=== PATIENT | female | born 1985 | race Caucasian/White ===

== ENCOUNTER 2019-01-11 15:25 | Inpatient (IN) | payer OTHER, SELFPAY ==
[2019-01-11 15:05] VITALS: BMI 33.3
[2019-01-11] MEDS: Lactated Ringers 1,000 ML 50 ML IV ×3 (15:40→22:37)
[2019-01-11 16:09] LABS: Absolute Lymphocyte Count 1.37 X10^3/ul (0.83-4.51); Absolute Neutrophil Count 14.4 X10^3/uL (2.0-7.7); Basophil# 0.02 X10^3/uL; Basophil% 0.1 % (0-1); Eosinophil# 0.05 X10^3/uL; Eosinophils% 0.3 % (0-5); Hematocrit 36.8 % (37-47); Hemoglobin 12.5 g/dl (12.0-15.0); Lymphocyte # 1.37 X10^3/ul (4.0); Mean Corpuscular Hgb 31.7 pg (27.0-32.0); Mean Corpuscular Volume 93.4 fL (81-99); Monocyte# 1.29 X10^3/uL; Monocyte% 7.5 % (0-10); Neutrophil % 83.9 % (47-70); Platelet Count 187 K/mm3 (150-450); RBC Distribution Width CV 12.7 % (11.6-14.6); RBC Distribution Width SD 43.3 fl (35.1-43.9); Red Blood Count 3.94 M/mm3 (4.2-5.4); White Blood Count 17.2 K/mm3 (4.4-11.0)
[2019-01-11 16:16] LABS: POSITIVE COUNT NO; POSITIVE DIFFERENTIAL NO; POSITIVE MORPHOLOGY NO
[2019-01-11] MEDS: Ondansetron 4 MG/2 ML Vial IV (16:30)
--- NOTE | 2019-01-11 16:42 | PCM.HP.OB ---
- Problem List (1) Active labor at term Status: Acute History Date of Admission: 01/11/19 Final LORI: 01/31/19 Final LORI Source: LMP Gestational age: 37 Weeks and 1 Days History of this : This is a 34 year-old, G [2], P [1], at 37+1 weeks gestational age presenting to triage reporting progressively closer and stronger contractions as day went on. Patient reports scant mucous blood discharge. Denies SROM. Reports +FM. Patient initially found to be 2-3cm/60/-2 by nursing staff on exam. Patient ambulated x 1 hour and then requested recheck of cervix. Allergies No Known Allergies Allergy (Verified 09/22/16 12:58) Home Medications: Home Medications Vits [Prenatabs FA ] 1 tablet PO DAILY 03/23/16 Aspir 81 81 mg PO DAILY 01/11/19 Smoking Status: Former smoker Alcohol: None Number of Fetus(es): 1 Heart Tracing: Baseline 140, moderate variability, + accels, no decels TOCO Analysis: Ctx q 3-5 minutes, mild to moderate by palpation History Past Pregnancies: Past Pregnancies Delivery Date Name GA/Weeks Outcome Route Weight Infant Gender Labor Length Anesthesia Delivery Location Provider FOB 03/2016 39+6 Live - IOL for GHTN 6#9oz M Epidural Labs: GBS Positive, H/H = 11.4/33.9 --> 13/39.3, Syphilis (RPR) - initial weakly reactive x 2 with final confirmation x 2 negative, Sequential Screen Neg, Rubella Immune, HIV NR, HepBsAg Neg, A+, Abs Neg, Urine Culture, Urine Tox Neg, GC/CT Neg/Neg Expected Infant Delivery Method: Spontaneous Vaginal Describe any other labor & delivery plans:: Epidural Number of Visits: 12 Review of Systems Constitutional: Denies: Chills, Fever, Weight Change HEENT: Denies: Head Aches, Sinus Congestion, Sinus Drainage Cardiovascular: Denies: Chest Pain, Palpitations Respiratory: Denies: Cough, Shortness of breath at rest, Sputum production Gastrointestinal: Denies: Abdominal Pain, Nausea, Vomiting Genitourinary: Denies: Dysuria Musculoskeletal: Denies: Joint Pain, Joint Tenderness Skin: Denies: Rash, Wounds Neurological: Denies: Numbness, Tingling, Focal weakness Psychiatric: Denies: Anxiety, Depression, Homicidal Ideations, Suicidal Ideations Hematologic/ Lymphatic: Denies: Easy Bruising, Easy Bleeding Physical Exam Vitals: Normotensive, Afebrile - see nurse's notes for vital signs General: Alert, Oriented x3, No apparent distress HEENT: Atraumatic, Normocephalic. Negative for: Thyromegaly, Lymphadenopathy Cardiovascular: Regular rate, Regular Rhythm Lungs: Normal air movement Abdomen: Soft, Non Tender, Gravid - EFW = 7# Neurological: Deep Tendon Reflexes 2+/4 and Symmetrical, Neuro grossly intact MACHINE SANDER: Normal external genitalia. Negative for: Vulvar lesions Estimated gestational size: Appropriate for gestational size Presentation: Cephalic Cervix Dilation (cm): 3.5 - IBOW per RN Station: -2 Effacement (%): 70 Assessment/Plan All Active Problems Active labor at term (Acute) This is a 34 year-old, G [2], P [1], at 37 weeks gestational age, Active Labor, Category I FHT P: 1) Admit patient, Dr. Harvey notified of admission 2) Patient desires epidural - start IV now and draw admission bloodwork. Patient may have epidural on request once fluid bolus and CBC results received. 3) Start abx for GBS prophylaxis 4) Anticipate Marylu FAJARDO
[2019-01-11] MEDS: fentaNYL-bupivacaine (epidural) 100 ML BAG EPIDURAL ×2 (17:40→22:04)
--- NOTE | 2019-01-11 18:39 | PN.OBGYN_ITS ---
Patient Problems: Active and Suspected Problems Active labor at term (Acute) Subjective: Patient feels comfortable after receiving her epidural. she reports continued concern about some of her vaginal bleeding. Scant mucus blood discharge noted still. Patient desires SVE at this time. Objective: Afebrile, Normotensive FHT baseline 140, moderate variability, no decels noted, + accels Ctx q 2-3 minutes, palpate moderate to strong SVE 5/90/-2 BBOW felt on exam, Vtx presentation confirmed by Juvenal's. - Physical Exam General: Alert, Oriented x3, Cooperative HEENT: Atraumatic, Normocephalic Lungs: Normal air movement Abdomen: Soft, Non Tender, Appropriate for Gestational Age Extremities: No edema, Capillary Refill Less than 3 Seconds Skin: No rashes, No breakdown Musculoskeletal: No Tenderness to Palpation of Joints or Extremities Neurological: Cranial nerves II-XII grossly intact Psych/Mental Status: Normal Affect, Appropriate Weight: 176 lb 5.917 oz Body Mass Index (BMI) 33.3 Intake and Output for Last 24 Hours 01/09/19 01/10/19 01/11/19 23:59 23:59 23:59 Intake Total 1085 / 1085 Balance 1085 / 1085 Laboratory Tests Past 24 Hrs 01/11/19 01/11/19 01/11/19 15:40 15:40 16:30 WBC 17.2 H RBC 3.94 L Hgb 12.5 Hct 36.8 L MCV 93.4 MCH 31.7 MCHC 34.0 RDW 12.7 RDW Differential 43.3 Plt Count 187 MPV 11.0 Immature Gran % (Auto) 0.200 Neut % (Auto) 83.9 H Lymph % (Auto) 8.0 L [place] % (Auto) 7.5 Eos % (Auto) 0.3 Baso % (Auto) 0.1 Absolute Neuts (auto) 14.4 H Absolute Lymphs (auto) 1.37 Total Counted Not Reportable Blood Type Cancelled A POSITIVE Antibody Screen Cancelled NEGATIVE Medical Necessity - Tobacco Use Smoking Status: Former smoker Assessment/Plan All Active Problems Active labor at term (Acute) 34 y/o @ 37 weeks, Category I FHT, Active Labor P: 1) Consider AROM once 2nd dose of antibiotics for GBS + status has infused 2) Continue expectant management 3) Anticipate Marylu Lin SCREENING REPRESENTATIVE-CNM
--- NOTE | 2019-01-11 21:09 | PN.OBGYN_ITS ---
Patient Problems: Active and Suspected Problems Active labor at term (Acute) Subjective: Patient remains comfortable after epidural still. 2nd dose of PCN infused, patient reports desire for AROM at this time to help with labor promotion. Objective: VSS, Afebrile FHT baseline 170 initially, now 160 to 165. Moderate variability, + accels, no decels Ctx q 2 minutes, moderate by palpation SVE = 7/90/0. AROM for blood tinged fluid - Physical Exam Weight: 176 lb 5.917 oz Body Mass Index (BMI) 33.3 Intake and Output for Last 24 Hours 01/09/19 01/10/19 01/11/19 23:59 23:59 23:59 Intake Total 1085 / 1085 Balance 1085 / 1085 Laboratory Tests Past 24 Hrs 01/11/19 01/11/19 01/11/19 15:40 15:40 16:30 WBC 17.2 H RBC 3.94 L Hgb 12.5 Hct 36.8 L MCV 93.4 MCH 31.7 MCHC 34.0 RDW 12.7 RDW Differential 43.3 Plt Count 187 MPV 11.0 Immature Gran % (Auto) 0.200 Neut % (Auto) 83.9 H Lymph % (Auto) 8.0 L [place] % (Auto) 7.5 Eos % (Auto) 0.3 Baso % (Auto) 0.1 Absolute Neuts (auto) 14.4 H Absolute Lymphs (auto) 1.37 Total Counted Not Reportable Blood Type Cancelled A POSITIVE Antibody Screen Cancelled NEGATIVE Medical Necessity - Tobacco Use Smoking Status: Former smoker Assessment/Plan All Active Problems Active labor at term (Acute) 34 y/o @ 37 weeks, Category I FHT noted, Transition Stage of Labor P: 1) Continue present management 2) Anticipate Marylu Lin WHEEL AND CASTER REPAIRER-CNM
--- NOTE | 2019-01-11 22:08 | PCM.PN.BLA ---
Progress Note Addendum: consultation with Dr. Harvey done around 2129 re: FHT tracing. Rise in baseline noted from 160 to 170-175. Discussion that patient has had very bloody show and AROM for blood-tinged fluid. Moderate variability still noted and no evidence of tachysystole at this time. Patient is also afebrile. Per conversation with Dr. Harvey will continue to expectantly labor at this time in preparation for vaginal delivery. Marylu FAJRADO
[2019-01-11] MEDS: Oxytocin 30 units/NS 500 ml 30 UNITS/500 ML IV.SOLN 334 UNITS IV (23:02)
[2019-01-11] MEDS: Oxytocin 30 units/NS 500 ml 30 UNITS/500 ML IV.SOLN 167 UNITS IV (23:35)
--- NOTE | 2019-01-11 23:38 | OP.PCM_ITS ---
Problem List (1) Active labor at term Status: Resolved Report of Operation Date of Procedure: 01/11/19 Pre-Operative Diagnosis: Labor @ 37+ weeks Post-Operative Diagnosis: of Viable Girl Baby Vaginal Delivery Maternal Presentation: Active Labor Amniotic Membrane Rupture Type: Artificial - blood-tinged Amniotic Fluid Description: Bloody Final LORI: 01/31/19 Final LORI Source: LMP Gestational age: 37 Weeks and 1 Days Date of Procedure: 01/11/19 Pre-Operative Diagnosis: Active Labor at 37+ weeks Post-Operative Diagnosis: of viable Girl Baby Surgery/ Procedure Performed: Spontaneous Vaginal Delivery Anesthesiologist: Toni Corral Type of Anesthesia: Epidural Description of Procedure: tachycardia noted in the 1-1.5 hour prior to delivery. Category II FHT with moderate variability that Dr. Harvey was notified of; slight increase in baseline noted with early decels during contractions. SVE done by this provider at patient was found to be 10/100/+1 station. Decision made to start pushing immediately to hasten delivery. Patient pushed well with urge and delivered a viable girl baby over 2nd degree lacerated perineum at 2259. Infant delivered OA and then restituted to GEETA --> LOT. Anterior shoulder delivered without difficulty followed by posterior shoulder and body. Infant with good tone and spontaneous respirations. immediately placed on maternal abdomen where baby was dried and stimulated. Mouth and nose bulb suctioned. Apgars 8 and 9. At time baby delivered, 10x5cm blood clot came out with baby. Umbilical clamped and cut once it stopped pulsing by FOB. Placenta then delivered spontaneously via Bond mechanism with maternal pushing effort. Placenta intact with 3VC. Placenta with small area of infarct noted on maternal surface c/w possible small partial abruption. FF midline to massage, IV pitocin per protocol infused for active management of the 3rd stage. Upon inspection of perineum, 2nd degree perineal and vaginal laceration noted. Repaired in the usual fashion under epidural analgesia using 3-0 vicryl suture. Sponge and needle count correct. V aginal sweep negative. Baby to breast and [id number] bonding initiated. Marylu Lin MATHEMATICIAN RESEARCH-CNM Presentation: Vertex, GEETA Placental Delivery Description: Spontaneous Placenta Disposition: [facility] Percentage of Placenta Abruption: 25 - large 10x5cm blood clot came out with baby Cord Vessel Description: 3 Vessels Cord Entanglement: None Estimated Blood Loss: 350 A gender: Female (1 minute): 8 (5 minute): 9 Episiotomy Description: None Laceration: Perineal Extension/lac, Vaginal Extension/lac, 2nd degree Medications given after delivery: IV Pitocin Complications: None
[2019-01-12] MEDS: 0.9% Saline Lock 10 ML Syringe IV (00:57)
[2019-01-12 03:15] VITALS: BP 121/77; PULSE 102; RESP 18; TEMP 36.5
--- NOTE | 2019-01-12 07:21 | PCM.PN.OB ---
Subjective: Patient laying back in bed bonding with child at this time. Reports no issues overnight. Notes no issues with urination or ambulation. Bleeding controlled and no other pain reported. Objective: VSS, Afebrile Nipples without cracks or blisters, no ecchymoses noted Abdomen NT x 4 quadrants, S=D, FF midline 2FB below umbilicus +2/4 reflexes in LE, no edema noted, negative calf tenderness to palpation small rubra lochia, perineum well approximated - Physical Exam General: Alert, Oriented x3, Cooperative HEENT: Atraumatic, Normocephalic Lungs: Normal air movement Cardiovascular: Regular rate, No murmurs Abdomen: Soft, Non Tender Extremities: No edema, Capillary Refill Less than 3 Seconds Skin: No rashes, No breakdown Musculoskeletal: No Tenderness to Palpation of Joints or Extremities Neurological: Cranial nerves II-XII grossly intact Psych/Mental Status: Normal Affect, Appropriate Weight: 176 lb 5.917 oz Body Mass Index (BMI) 33.3 Intake and Output for Last 24 Hours 01/10/19 01/11/19 01/12/19 23:59 23:59 23:59 Intake Total 1085 / 1085 1782 / 1782 Output Total 1000 / 1000 Balance 1085 / 1085 782 / 782 Laboratory Tests Past 24 Hrs 01/11/19 01/11/19 01/11/19 15:40 15:40 16:30 WBC 17.2 H RBC 3.94 L Hgb 12.5 Hct 36.8 L MCV 93.4 MCH 31.7 MCHC 34.0 RDW 12.7 RDW Differential 43.3 Plt Count 187 MPV 11.0 Immature Gran % (Auto) 0.200 Neut % (Auto) 83.9 H Lymph % (Auto) 8.0 L [place] % (Auto) 7.5 Eos % (Auto) 0.3 Baso % (Auto) 0.1 Absolute Neuts (auto) 14.4 H Absolute Lymphs (auto) 1.37 Total Counted Not Reportable Blood Type Cancelled A POSITIVE Antibody Screen Cancelled NEGATIVE Medical Necessity - Tobacco Use Smoking Status: Former smoker Assessment/Plan All Active Problems Active labor at term (Resolved) 34 y/o PPD #1, Normal PP Course P: 1) Continue PP orders at this time 2) Anticipate discharge to home tomorrow Marylu Lin CRYPTOZOOLOGIST-CNM
[2019-01-12 08:00] VITALS: BP 117/83; PULSE 134; RESP 16; TEMP 36; O2SAT 95
[2019-01-12] MEDS: Ibuprofen 600 MG Tablet PO ×2 (08:24→20:47)
[2019-01-12] MEDS: Acetaminophen 500 MG Tablet 1000 MG PO (12:17)
[2019-01-12 14:00] VITALS: BP 119/70; PULSE 87; RESP 16; TEMP 36.5; O2SAT 97
[2019-01-12 20:45] VITALS: BP 117/78; PULSE 89; RESP 17; TEMP 35.7
[2019-01-13 01:20] VITALS: BP 124/81; PULSE 79; RESP 17; TEMP 36.4
[2019-01-13] MEDS: Ibuprofen 600 MG Tablet PO ×2 (02:32→08:44)
[2019-01-13] MEDS: Senna/Docusate Sodium 1 Tablet PO (07:37)
[2019-01-13 08:12] VITALS: BP 108/65; PULSE 83; RESP 16; TEMP 36.4
--- NOTE | 2019-01-13 08:13 | DCINST_ITS ---
Discharge Diet: No Restrictions Discharge Activity: May Drive, May Shower May resume sexual activity in: 6 weeks Weight Bearing Status: Weight bearing as tolerated Additional Instructions: If you experience any of the following, contact your healthcare provider. * Bleeding that soaks a pad every hour for 2 hours * Fever 100.4 or higher * Unrelieved incision or abdominal pain * Swelling, redness, discharge or bleeding from your incision or episiotomy site * Your incision begins to separate * Problems urinating (including inability to urinate or burning while urinating). * Visual changes * Severe headache * Flu-like symptoms * Pain or redness in one of both of your breasts * Pain, warmth, tenderness or swelling in your legs, especially the calf area * Frequent nausea and vomiting * Symptoms of depression or anxiety If you experience any of the following, call 911 or go to the nearest Emergency Room. * Chest pain * Problems breathing * Seizure activity * Partial or complete paralysis of a body part, slurred speech, weakness or drooping of the face, or a sudden inability to walk or hold your balance Allergies/Adverse Reactions: Allergies No Known Allergies Allergy (Verified 09/22/16 12:58) Medications to take at Discharge Vits [Prenatabs FA ] 1 tablet PO DAILY 03/23/16 Primary Care Physician: Care Physician,No Primary [Primary Care Provider] - Test Results: Test results from this visit will be discussed in further detail at your follow- up appointment, if applicable.
--- NOTE | 2019-01-13 08:13 | PCM.DCVAG ---
Discharge Diet: No Restrictions Discharge Activity: May Drive, May Shower May resume sexual activity in: 6 weeks Weight Bearing Status: Weight bearing as tolerated Additional Instructions: If you experience any of the following, contact your healthcare provider. Bleeding that soaks a pad every hour for 2 hours Fever 100.4 or higher Unrelieved incision or abdominal pain Swelling, redness, discharge or bleeding from your incision or episiotomy site Your incision begins to separate Problems urinating (including inability to urinate or burning while urinating). Visual changes Severe headache Flu-like symptoms Pain or redness in one of both of your breasts Pain, warmth, tenderness or swelling in your legs, especially the calf area Frequent nausea and vomiting Symptoms of depression or anxiety If you experience any of the following, call 911 or go to the nearest Emergency Room. Chest pain Problems breathing Seizure activity Partial or complete paralysis of a body part, slurred speech, weakness or drooping of the face, or a sudden inability to walk or hold your balance Allergies/Adverse Reactions: Allergies No Known Allergies Allergy (Verified 09/22/16 12:58) Medications to take at Discharge Vits [Prenatabs FA ] 1 tablet PO DAILY 03/23/16 Primary Care Physician: Care Physician,No Primary [Primary Care Provider] - Test Results: Test results from this visit will be discussed in further detail at your follow-up appointment, if applicable.
--- NOTE | 2019-01-13 08:14 | PCM.PN.OB ---
Subjective: No complaints - Physical Exam General: Alert, Oriented x3 Abdomen: Soft, Non Tender, Non-Distended - ff mid & below umb Extremities: No Calf Tenderness Neurological: Cranial nerves II-XII grossly intact Vital Signs Temp Pulse Resp BP Pulse Ox 97.6 F L 79 17 124/81 H 97 01/13/19 01:20 01/13/19 01:20 01/13/19 01:20 01/13/19 01:20 01/12/19 14:00 Oxygen Delivery Method Room Air Weight: 176 lb 5.917 oz Body Mass Index (BMI) 33.3 Intake and Output for Last 24 Hours 01/11/19 01/12/19 01/13/19 23:59 23:59 23:59 Intake Total 1085 / 1085 1782 / 1782 Output Total 1850 / 1850 Balance 1085 / 1085 -68 / -68 Medical Necessity - Tobacco Use Smoking Status: Former smoker Assessment/Plan All Active Problems Active labor at term (Resolved) PPD#2 D/c home
[2019-01-13 12:03] VITALS: BP 110/73; PULSE 91; RESP 18; TEMP 36.7
== END 2019-01-13 12:55 | disposition home or self-care (01) | DRG 807 ==
LOC: WP 16:40 → WPOUT 01-13 08:05 → WP 01-13 08:08
PROVIDERS: Admitting Provider Obstetrics & Gynecology; Referring Provider Advanced Practice Midwife; Visit Provider Advanced Practice Midwife
DX: O99.824 Streptococcus B carrier state complicating childbirth (principal); Z37.0 Single live birth; O76 Abnormality in fetal heart rate and rhythm complicating labor and delivery; O45.93 Premature separation of placenta, unspecified, third trimester; Z3A.37 37 weeks gestation of pregnancy; O70.1 Second degree perineal laceration during delivery; Z87.891 Personal history of nicotine dependence
CPT/HCPCS: 59025; 59050; 85025; 86850; 86900; 99218; J7120; A4216; G0378; J2405

== ENCOUNTER 2021-03-07 07:05 | Inpatient (IN) | payer OTHER, SELFPAY ==
[2021-03-07] VITALS (42 sets, daily range): BP systolic 95–139; BP diastolic 55–89; PULSE 99–148; TEMP 36.2–38.2; O2SAT 82–100; BMI 33.8
[2021-03-07 07:38] LABS: Absolute Lymphocyte Count 0.58 X10^3/uL (0.83-4.51); Absolute Neutrophil Count 6.4 X10^3/uL (2.0-7.7); Basophil# 0.02 X10^3/uL; Basophil% 0.3 % (0-1); Eosinophil# 0.01 X10^3/uL; Eosinophils% 0.1 % (0-5); Hematocrit 35.1 % (37-47); Hemoglobin 11.4 g/dL (12.0-15.0); Lymphocyte # 0.58 X10^3/ul (0.83-4.51); Lymphocyte % 7.6 % (19-41); Mean Corp Hgb Conc 32.5 g/dL (32-36); Mean Corpuscular Hgb 30.5 pg (27.0-32.0); Mean Corpuscular Volume 93.9 fL (81-99); Mean Platelet Vol. 11.1 fl (6.2-12.0); Monocyte# 0.61 X10^3/uL; NRBC Flagged by Analyzer 0 % (0-5); Neutrophil # 6.39 X10^3/uL (2.7-7.7); Neutrophil % 83.6 % (47-70); POSITIVE DIFFERENTIAL YES; Platelet Count 156 K/mm3 (150-450); RBC Distribution Width SD 46.6 fl (35.1-43.9); Red Blood Count 3.74 M/mm3 (4.2-5.4); White Blood Count 7.6 K/mm3 (4.4-11.0)
[2021-03-07 07:42] LABS: Differential Indicated SCAN CRITERIA MET
--- NOTE | 2021-03-07 07:58 | PCM.HP.OB ---
HPI - General General Date of Admission: 03/07/21 HPI Narrative FILI JOHNSON, is a 36 F at 39.0 weeks gestation that presents for elective induction of labor. Patient has a history of a placental abruption with previous delivery. Maternal Data Information LORI Calculator Estimated Delivery Date Method Current WG Current Estimate 03/14/21 Manual 39w 0d PFSH PFSH Medical History Anxiety Home Medications Prenatabs FA 1 tab PO DAILY 03/23/16 [History Last Taken 03/05/21 21:00] Allergy/AdvReac Type Severity Reaction Status Date / Time No Known Allergies Allergy Verified 03/07/21 08:07 Social History Smoking Status: Former smoker History Elective abortions Hx Para 2 Spontaneous abortions Hx # Term Pregnancies Ectopic pregnancies Hx # Pregnancies Multiple births # of living children NST FHR Rate Baby A Baseline: 135 Variability:: Moderate Accelerations:: 15 x 15 Decelerations:: None NST Reactive:: Yes FHR Category:: Category I Uterine Activity:: Irregular ROS Eyes Eyes: Denies blurry vision, change in vision or spots in vision ENT HEENT: Denies dizziness or headache(s) Cardiovascular Cardiovascular: Denies abdominal pain, chest pain or dyspnea Respiratory/Chest Respiratory/Chest: Denies cough, dyspnea, shortness of breath at rest or shortness of breath with exertion Gastrointestinal Gastrointestinal: Denies abdominal pain, diarrhea or vomiting Genitourinary Genitourinary: Denies change in urinary stream, difficulty urinating or dysuria Musculoskeletal Musculoskeletal: Reports none Integumentary Integumentary: Denies rash Neurologic Neurologic: Denies dizziness, headache(s), memory loss or weakness Psychiatric Psychiatric: Reports anxiety Vital Signs Vital Signs Vital Signs: 03/07/21 07:28 Temperature 97.1 F L Temperature Source Temporal Pulse Rate 115 H Blood Pressure 110/77 BP Systolic 110 BP Diastolic 77 Pulse Ox 98 Weight Body Mass Index (BMI) 33.3 Physical Exam Const alert, oriented x3 and no apparent distress General Appearance: cooperative Orientation / Consciousness: awake Exam Limitations: no limitations HEENT normocephalic Head and Scalp: normal to inspection Eyes General Eye: normal appearance of both eyes Neck full ROM and no lymphadenopathy Lymph Lymphatic: no lymphadenopathy noted Chest inspection of chest normal Resp normal respiratory effort, normal air movement and clear to auscultation bilaterally Effort and Inspection: able to speak in complete sentences and symmetric chest movement Cardio regular rate and regular rhythm GI normal to inspection, nondistended, normoactive bowel sounds Manual OB Exam: dilated 1, effaced 50 and station -2 Back/Spine normal ROM Extremity full ROM and no calf tenderness Skin no rashes or lesions noted General Skin Exam: no breakdown Neuro oriented x3 and CN's II-XII intact bilaterally Psych mental status grossly normal and thought process normal Labs Labs Labs: Blood Type A POSITIVE Antibody Screen NEGATIVE Hct 35.1 % (37-47) L Hgb 11.4 g/dL (12.0-15.0) L Rhogam given: No Rubella- immune HB negative HC negative HIV- NR RPR- NR GBS positive Assessment & Plan (1) Elective induction of labor planned: (2) 39 weeks gestation of : (3) History of placenta abruption: (4) Anxiety: (5) Positive GBS test: PLAN: Admit to labor and delivery for induction of labor Routine labs Start IV fluids and titrate per orders GBS positive- Start PCN 5 million units IV x1 then follow with PCN 3 million units IV every 4 hours until delivery Salomon bulb placed without incident Cytotec 25 mcg PO x 1 now and will reevaluate after [address] White notified and is collaborating physician
[2021-03-07] MEDS: Lactated Ringers 1,000 ML 50 ML IV (08:15)
[2021-03-07] MEDS: 0.9% Normal Saline Single 100 ML IV.SOLN. INTRA-UTER (09:06)
[2021-03-07] MEDS: miSOPROStol 25 MCG TABLET PO (09:13)
[2021-03-07] MEDS: Lactated Ringers 500 ML 999 ML IV ×2 (12:21→18:45)
[2021-03-07] MEDS: fentaNYL-bupivacaine (epidural) 100 ML BAG EPIDURAL ×2 (13:31→17:44)
[2021-03-07] MEDS: Oxytocin 30 units/NS 500 ml 30 UNITS/500 ML IV.SOLN IV (14:15)
[2021-03-07] MEDS: Lactated Ringers 1,000 ML 200 ML IV (16:38)
[2021-03-07] MEDS: Penicillin G 3,000,000 Units 50 ML 100 UNITS IV ×2 (16:38→20:27)
--- NOTE | 2021-03-07 16:43 | PCM.PN.BLA ---
Progress Note Patient seen at bedside. Resting comfortably with epidural. Denies any pain with contractions. Physical Exam Const alert, oriented x3 and no apparent distress General Appearance: cooperative Orientation / Consciousness: awake Exam Limitations: no limitations HEENT normocephalic Head and Scalp: normal to inspection Eyes General Eye: normal appearance of both eyes Neck full ROM and no lymphadenopathy Lymph Lymphatic: no lymphadenopathy noted Chest inspection of chest normal Resp normal respiratory effort, normal air movement and clear to auscultation bilaterally Effort and Inspection: able to speak in complete sentences and symmetric chest movement Cardio regular rate and regular rhythm GI normal to inspection, nondistended, normoactive bowel sounds Manual OB Exam: dilated 5, effaced 70 and station -2 Amniotic Fluid: clear amniotic fluid Back/Spine normal ROM Extremity full ROM and no calf tenderness Skin no rashes or lesions noted General Skin Exam: no breakdown Neuro oriented x3 and CN's II-XII intact bilaterally Psych mental status grossly normal and thought process normal Assessment & Plan Assessment/Plan (1) 39 weeks gestation of : (2) Elective induction of labor planned: (3) Positive GBS test: PLAN: Category 1 tracing- NST reactive Contractions every 4-6 minutes that palpate moderate and relaxed in between GBS positive- Adequately treated with PCN IV CE- 5/70/-2 A.R.O.M for clear fluid IUPC placed without difficulty Pitocin IV at 6 mu/min- continue to titrate per policy Anticipate
[2021-03-07] MEDS: Ondansetron 4 MG/2 ML Vial IV (19:46)
[2021-03-07] MEDS: Oxytocin 30 units/NS 500 ml 30 UNITS/500 ML IV.SOLN 334 UNITS IV (21:09)
--- NOTE | 2021-03-07 21:45 | EX.PCM.OBRPT ---
Assessment & Plan (1) (spontaneous vaginal delivery): (2) Perineal laceration, second degree, delivered: Maternal Data Information LORI Calculator Estimated Delivery Date Method Current WG Current Estimate 03/14/21 Manual 39w 0d Vaginal Delivery Maternal Presentation Maternal Presentation: Elective Induction Maternal Presentation: Patient at 39.0 weeks gestation for elective induction of labor due to history of placenta abruption and current anxiety. Type of Induction: Pitocin, Salomon Bulb and Amniotomy Operative Information Pre-Operative Diagnosis: Term gestation, Elective induction of labor Post-Operative Diagnosis: same, live male Surgery / Procedure Performed: Spontaneous Vaginal Delivery Type of Anesthesia: Epidural Drain: Salomon to straight drain Estimated Blood Loss: 300 Time of Delivery: 21:07 Findings Description of Procedure: Called to patient room for CE. Patient complete dilation and +1 station. Patient moving infant with initial push. Delivery of infant head with minimal maternal effort followed by anterior shoulder, posterior shoulder and remainder of body. Vigorous male placed on maternal abdomen and attended to by nursing staff. Pitocin IV started for active management of the third stage of labor. Cord was clamped and cut after 3 minute delay by FOB. Placenta delivered spontaneously and intact. After inspection, a second degree perineal laceration noted and repaired with Vicryl 3-0 rapid in usual fashion. Hemostasis obtained. Fundus firm at U. EBL 300 cc. Vaginal sweep completed by me. Patient and infant bonding at this time. Dr. White notified of delivery. Presentation: Vertex and GEETA Amniotic Membrane Rupture Type: Artificial Time of Membrane Rupture: 1626 Amniotic Fluid Description: Clear Placental Delivery Description: Spontaneous Cord Vessel Description: 3 Vessels Cord Entanglement: None A Gender: Male (1 minute): 9 (5 minute): 9 Delayed Cord Clamping: Yes Post Vaginal Delivery Medications Given After Delivery: IV Pitocin Episiotomy Description: None Laceration: Perineal Extension/lac and 2nd degree Complication Complications: None
[2021-03-07] MEDS: Acetaminophen 500 MG Tablet 1000 MG PO (23:17)
--- NOTE | 2021-03-07 23:46 | NURSING ---
Report received from Kelli MUNIZ. Taking over pt and care at this time.
[2021-03-07] MEDS: 0.9% Saline Lock 10 ML Syringe IV (23:49)
--- NOTE | 2021-03-08 00:35 | NURSING ---
Epidural catheter removed, blue tip intact.
[2021-03-08 04:30] VITALS: BP 113/79; PULSE 102; RESP 16; TEMP 36.3; O2SAT 96
[2021-03-08 05:44] LABS: Hematocrit 33.2 % (37-47); Mean Corp Hgb Conc 33.1 g/dL (32-36); Mean Corpuscular Volume 93.5 fL (81-99); Mean Platelet Vol. 10.9 fl (6.2-12.0); Platelet Count 149 K/mm3 (150-450); RBC Distribution Width CV 14.4 % (11.6-14.6); RBC Distribution Width SD 47.9 fl (35.1-43.9); Red Blood Count 3.55 M/mm3 (4.2-5.4); White Blood Count 9.8 K/mm3 (4.4-11.0)
--- NOTE | 2021-03-08 08:24 | PCM.PN.OB ---
Subjective Subjective Patient seen at bedside, doing well. Patient reports good pain control. Mild lochia. Breast-feeding. Patient would like to be DC'd home at 24 hours if baby is cleared. Objective Data Objective Data Vital Signs: Vital Signs Temp Pulse Resp BP Pulse Ox 97.3 F L 102 H 16 113/79 96 03/08/21 04:30 03/08/21 04:30 03/08/21 04:30 03/08/21 04:30 03/08/21 04:30 Oxygen Delivery Method Room Air Weight: 81.2 kg Body Mass Index (BMI) 33.8 Intake & Output: Intake and Output for Last 24 Hours 03/06/21 03/07/21 03/08/21 23:59 23:59 23:59 Intake Total 4274.64 / 4274.64 500 / 500 Output Total 1350 / 1350 1000 / 1000 Balance 2924.64 / 2924.64 -500 / -500 Lab / Micro Data Result Diagrams: 03/08/21 05:30 Labs: Laboratory Results - last 24 hr 03/07/21 07:20: Blood Type A POSITIVE, Antibody Screen NEGATIVE 03/08/21 05:30: WBC 9.8, RBC 3.55 L, Hgb 11.0 L, Hct 33.2 L, MCV 93.5, MCH 31.0, MCHC 33.1, RDW Std Deviation 47.9 H, RDW Coeff of Darshan 14.4, Plt Count 149 L, MPV 10.9 Micro: Microbiology 03/07/21 07:35 Mucosa - Nose SARS-CoV-2 Antigen (Rapid) - Final Physical Exam Const alert and oriented x3 General Appearance: cooperative HEENT normocephalic Neck General: normal visual inspection GI soft to palpation and non-distended GI Narrative: Fundus firm Extremity normal to inspection and no calf tenderness Skin no rashes or lesions noted Neuro oriented x3 and CN's II-XII intact bilaterally Psych mental status grossly normal Assessment & Plan (1) (spontaneous vaginal delivery): (2) Perineal laceration, second degree, delivered: PLAN: PPD# 1 , Doing well Routine care pain mgmt ambulation possible dc home
--- NOTE | 2021-03-08 08:25 | PCM.DC ---
Discharge Instructions Diet Discharge Diet: No restrictions Activity May resume sexual activity in: 6-8 weeks Dressing / Incision Call your doctor if you observe: Fever of 101 or Higher, Inability to urinate, Using more than 1 pad per hour and Uncontrolled pain Follow Up Care Please Follow Up With: Nohemi Edmonds MD When: 1-2 weeks post and again at 6 weeks post . [phone] Test Results: Test results from this visit will be discussed in further detail at your follow-up appointment, if applicable. Discharge Plan Admission Admit Date/Time: 03/07/21 07:05 Attending Provider: Carolann Mercer Primary Care Provider: Care Physician,Dinorah Primary Discharge Orders/Prescriptions Prescriptions: No Action Prenatabs FA 1 TABLET tablet 1 tab PO DAILY RF: 0
[2021-03-08 09:04] VITALS: BP 105/76; PULSE 98; RESP 16; TEMP 36.3; O2SAT 98
[2021-03-08] MEDS: Prenatal Vits Tablet 1 TABLET PO (09:14)
[2021-03-08] MEDS: Naproxen 500 MG Tablet PO ×2 (09:14→17:22)
[2021-03-08 11:33] VITALS: BP 113/72; PULSE 80; RESP 16; TEMP 36.1; O2SAT 99
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
[2021-03-08] MEDS: Acetaminophen 500 MG Tablet 1000 MG PO ×2 (12:23→18:29)
[2021-03-08 15:51] VITALS: BP 101/58; PULSE 89; RESP 16; TEMP 36.1; O2SAT 99
[2021-03-08 22:00] VITALS: BP 119/71; PULSE 95; RESP 16; TEMP 36.4
== END 2021-03-08 23:15 | disposition home or self-care (01) | DRG 807 ==
PROVIDERS: Admitting Provider Advanced Practice Midwife; Visit Provider Advanced Practice Midwife
DX: O99.824 Streptococcus B carrier state complicating childbirth (principal); Z20.822 Contact with and (suspected) exposure to COVID-19; O70.1 Second degree perineal laceration during delivery; Z87.891 Personal history of nicotine dependence; Z3A.39 39 weeks gestation of pregnancy; Z37.0 Single live birth
CPT/HCPCS: 59025; 59050; 85025; 85027; 86850; 86900; 86901; 87426; 99218; J7120; A4216; G0378; J2405

== ENCOUNTER 2025-02-22 18:27 | Emergency (ER) | payer OTHER, SELFPAY ==
[2025-02-22 18:28] VITALS: BP 137/95; PULSE 95; RESP 18; TEMP 36.8; O2SAT 98; BMI 24.4
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
[2025-02-22 21:14] VITALS: BP 129/82; PULSE 82; RESP 14; TEMP 36.6; O2SAT 98
== END 2025-02-22 21:22 | disposition home or self-care (01) ==
PROVIDERS: Emergency Provider Emergency Medicine; PCP Registered Nurse; Referring Provider Emergency Medicine; Visit Provider Emergency Medicine
DX: S09.90XA Unspecified injury of head, initial encounter (principal); S00.33XA Contusion of nose, initial encounter; Z87.891 Personal history of nicotine dependence; H57.9 Unspecified disorder of eye and adnexa; W50.0XXA Accidental hit or strike by another person, initial encounter
CPT/HCPCS: 70480; 99283